=== PATIENT | female | born 1975 | race Caucasian/White ===

== ENCOUNTER → 2016-10-11 | Outpatient (CLI) | payer BC ==
[~2016-10-11] MED LIST: COLE1TAB2 PO; HYDR-926 PO
[2016-10-11 10:15] LABS: BASOPHIL % 0.2 % (0.0-0.2); EOSINOPHIL # 0.1 10^3/uL (0.0-0.2); EOSINOPHIL % 0.9 % (0.0-5.0); HEMOGLOBIN 14.8 g/dL (12.0-15.0); LYMPHOCYTES # 2.1 10^3/uL (1.0-4.8); LYMPHOCYTES % 32.4 % (24.0-44.0); MEAN CELL HGB 30.5 pg (26-34); MEAN CELL HGB CONCENTRATION 34.1 g/dL (33-37); MEAN CORP VOLUME 89.3 fL (78-100); MEAN PLATELET VOLUME 11.7 fL (7.8-11.0); MONOCYTES # 0.7 10^3/uL (0.3-0.8); MONOCYTES % 10.8 % (5.0-12.0); NEUTROPHIL # 3.6 10^3/uL (1.8-7.7); NEUTROPHILS % 55.4 % (41.0-85.0); RED CELL DISTRIBUTION WIDTH 12.3 % (11.5-14.5); WHITE BLOOD CELL 6.5 10^3/uL (4.5-11.0)
[2016-10-11 11:13] LABS: BILIRUBIN,URINE NEGATIVE (NEGATIVE); UROBILINOGEN,URINE NORMAL (NEGATIVE)
[2016-10-11 11:18] LABS: CARBON DIOXIDE 23.7 mmol/L (20.0-32)
[2016-10-11 11:19] LABS: CALCIUM 9.3 mg/dL (8.4-10.5)
[2016-10-11 11:25] LABS: APPEARANCE,URINE CLEAR (CLEAR); UA COLOR STRAW (YELLOW)
== END | disposition home or self-care (01) ==
LOC: LAB 09:54
PROVIDERS: ATTEND Internal Medicine
DX: Z13.1 Encounter for screening for diabetes mellitus (principal); E78.9 Disorder of lipoprotein metabolism, unspecified
CPT/HCPCS: 36415; 80053; 80061; 81002; 84443; 85025; 86318

== ENCOUNTER → 2016-11-10 | Outpatient (CLI) | payer BC ==
[2016-11-14 12:15] LABS: A/G RATIO 1.5 (0.7-1.7); ALPHA-2-GLOBULIN 0.6 g/dL (0.4-1.0); GAMMA GLOBULIN 1.5 g/dL (0.4-1.8); GLOBULIN, TOTAL 3.1 g/dL (2.2-3.9); M-SPIKE Not Observed g/dL (Not Observed); PROTEIN, TOTAL 7.8 g/dL (6.0-8.5)
== END | disposition home or self-care (01) ==
LOC: LAB 09:28
PROVIDERS: ATTEND Internal Medicine
DX: Z12.9 Encounter for screening for malignant neoplasm, site unspecified (principal); R79.9 Abnormal finding of blood chemistry, unspecified
CPT/HCPCS: 36415; 84165; 84166

== ENCOUNTER → 2018-03-14 | Outpatient (CLI) | payer BC, OTHER ==
[~2018-03-14] MED LIST changes: +HYDR-3468 PO; -HYDR-926 PO
--- NOTE | 2018-03-14 11:48 | DIREP ---
PROCEDURE:XRAY SPINE LUMBAR 2-3 VWS COMPARISON:None. INDICATIONS:BACK PAIN W/RADICULOPATHY TECHNIQUE:AP, lateral, and coned down lateral views of the lumbar spine are provided. FINDINGS: ALIGNMENT:Normal. VERTEBRAE:Normal. DISK SPACES:Moderate disc space narrowing is seen at L5-S1. SPONDYLOLISTHESIS:None. SACROILIAC JOINTS:Normal. OTHER:2 surgical clips are seen in the mid abdomen. CONCLUSION:There are findings of degenerative disc disease at L5-S1. Dictated by: Javier Chua M.D. on 03/14/2018 at 11:45 AM
--- NOTE | 2018-03-14 11:51 | DIREP ---
PROCEDURE:XRAY SPINE THORACIC 3 VWS COMPARISON:None. INDICATIONS:BACK PAIN W/RADICULOPATHY TECHNIQUE:AP & lateral views of the thoracic spine are provided. FINDINGS: ALIGNMENT:Normal. VERTEBRAE:Normal. DISK SPACES:Normal. OTHER:Normal. CONCLUSION:Normal examination. Dictated by: Javier Chua M.D. on 03/14/2018 at 11:49 AM
== END | disposition home or self-care (01) ==
LOC: RAD 10:36
PROVIDERS: ATTEND Nurse Practitioner Family
DX: M51.17 Intervertebral disc disorders with radiculopathy, lumbosacral region (principal); M48.07 Spinal stenosis, lumbosacral region
CPT/HCPCS: 72072; 72100

== ENCOUNTER → 2018-03-25 | Outpatient (CLI) | payer OTHER, SELFPAY ==
--- NOTE | 2018-03-25 10:02 | DIREP ---
PROCEDURE:MRI SPINE LUMBAR W/O COMPARISON:None. INDICATIONS:BACK PAIN WITH RADICULOPATHY M54.16 TECHNIQUE:T1 sagittal, T2 sagittal, STIR sagittal, T1 axial, T2 axial, and T2 coronal images of the lumbar spine are provided. FINDINGS: ALIGNMENT:Normal. VERTEBRA:Multilevel endplate Schmorl's nodes from T11-12 through L4-5. CORD/CAUDA EQUINA:Normal size, contour, and signal intensity. PARASPINAL AREA:Normal with no visible mass. OTHER:None. LUMBAR DISC LEVELS T12-L1:No significant disc/facet abnormality, spinal stenosis, or foraminal stenosis. L1-L2:No significant disc/facet abnormality, spinal stenosis, or foraminal stenosis. L2-L3:No significant disc/facet abnormality, spinal stenosis, or foraminal stenosis. L3-L4:No significant disc/facet abnormality, spinal stenosis, or foraminal stenosis. L4-L5:No significant disc/facet abnormality, spinal stenosis, or foraminal stenosis. L5-S1:Mild disc space narrowing, disc desiccation, and minimal dorsal disc bulging. Type 1 Modic endplate degenerative signal changes along the ventral L5-S1 opposing endplates. CONCLUSION: 1. Mild L5-S1 degenerative disc disease with minimal L5-S1 dorsal disc bulging. 2. No spinal canal or neural foraminal narrowing. Dictated by: Nacho Elizabeth MD on 03/25/2018 at 09:55 AM
== END | disposition home or self-care (01) ==
LOC: MRI 08:47
PROVIDERS: ATTEND Pediatrics
DX: M51.37 Other intervertebral disc degeneration, lumbosacral region (principal); M51.27 Other intervertebral disc displacement, lumbosacral region; M54.16 Radiculopathy, lumbar region; M48.07 Spinal stenosis, lumbosacral region
CPT/HCPCS: 72148